=== PATIENT | male | born 1945 | race Caucasian/White ===

== ENCOUNTER 2019-10-13 07:53 | Emergency (ER) | payer OTHER, SELFPAY ==
[2019-10-13 07:52] VITALS: BP 159/105; PULSE 68; RESP 18; TEMP 36.4; O2SAT 97
--- NOTE | 2019-10-13 07:59 | ED.BACK ---
HPI - Back Pain/Injury General Chief Complaint: Back Pain/Injury Stated Complaint: back pain Time Seen by Provider: 10/13/19 08:03 Source: patient Mode of arrival: EMS Limitations: no limitations History of Present Illness HPI Narrative: A 74 y/o male presents to the ED, via EMS, with c/o back pain. Pt states that the back pain started at 0645 today when he was reaching behind him with his left arm. He notes that the back pain is located between his shoulder blades. The back pain is aggravated with movement, but he did not take any pain medication prior to his ED visit. He has a PMHx of CABG, HTN, and colon cancer. Pt denies and CP or SOB. Dr. Barclay is his PCP. MD elicited complaint: back pain Onset (ago): hour(s) (1.5) Timing: constant Location: thoracic spine Exacerbating factors: movement Context: turning/twisting Associated symptoms: denies other symptoms Treatments prior to arrival: other (none) Related Data Home Medications Medication Instructions Recorded Confirmed aspirin 81 mg PO DAILY 10/13/19 clopidogrel [Plavix] 75 mg PO DAILY 10/13/19 insulin aspart U-100 [Novolog 10 - 15 sliding scale dose SUBCUT 10/13/19 PenFill U-100 Insulin] insulin glargine [Lantus U-100 15 unit SUBCUT HS 10/13/19 Insulin] isosorbide mononitrate 30 mg PO DAILY 10/13/19 losartan 100 mg PO DAILY 10/13/19 metoprolol succinate 50 mg PO BID 10/13/19 nitroglycerin 0.4 mg SUBLINGUAL ONCE 10/13/19 Allergies Allergy/AdvReac Type Severity Reaction Status Date / Time Sulfa (Sulfonamide Allergy Mild Rash Unverified 10/13/19 07:56 Antibiotics) metformin Allergy Gastrointestinal Verified 10/13/19 07:56 Upset Review of Systems Review of Systems: All systems reviewed & are unremarkable except as noted in HPI and below Cardiovascular: Cardiovascular: Denies chest pain Respiratory: Respiratory: Denies dyspnea Musculoskeletal: Musculoskeletal: Reports back pain PMFSH Past Medical History Medical History (Updated 10/13/19 @ 08:23 by Anca Kirkpatrick MD) Cancer Colon Diabetes HTN (hypertension) Hyperlipidemia Surgical History Surgical History (Updated 10/13/19 @ 08:07 by Jesenia Winkler) History of colon resection Hx of CABG Social History Social History (Updated 10/13/19 @ 08:07 by Jesenia Winkler) Smoking status: Former smoker Tobacco type: cigarettes Second hand tobacco smoke exposure: Yes Smoking end date: 07/24/69 Exam Const: General: cooperative, no acute distress and alert Nutritional Appearance: well nourished Orientation/consciousness: patient oriented x3 Limitations: no limitations HENMT: Mouth: Yes lip normal and Yes moist mucous membranes Resp: Effort & Inspection: normal respiratory effort Auscultation: clear to auscultation bilaterally Cardio: Rate: regular rate Rhythm: regular rhythm GI: GI Palp: Yes Soft to palpation and No Tenderness to palpation present (GI) Auscultation: normal bowel sounds Back/Spine/Pelvis: Back: back tenderness (mid to lower thoracic and paraspinal) Skin: General skin exam: normal color Neuro: General: patient oriented x3 Cognition (Neuro): normal cognition Speech: normal speech Extrem: General: normal to inspection, full ROM and no clubbing, cyanosis or edema Psych: Mental Status: mental status grossly normal Affect: normal affect Attitude: cooperative Course Course Emergency Course: Patient with muscle strain in the thoracic region. Reproducible symptoms noted on exam. Counseled patient on symptomatic management. Vital Signs Vital signs: Vital Signs Temperature 97.5 F L 10/13/19 07:52 Pulse Rate 68 10/13/19 07:52 Respiratory Rate 18 10/13/19 07:52 Blood Pressure 159/105 H 10/13/19 07:52 Pulse Oximetry 97 10/13/19 07:52 Temperature 97.5 F L 10/13/19 07:52 Pulse Rate 85 10/13/19 08:50 Respiratory Rate 18 10/13/19 08:50 Blood Pressure 157/94 H 10/13/19 08:50 Pulse Oximetry 97 10/13/19 08:50
[2019-10-13 08:50] VITALS: BP 157/94; PULSE 85; RESP 18; O2SAT 97
[2019-10-13] MEDS: ACETAMINOPHEN 500 MG TABLET 1000 MG PO (09:06)
== END 2019-10-13 09:00 | disposition home or self-care (01) ==
PROVIDERS: Emergency Provider Emergency Medicine
DX: S29.012A Strain of muscle and tendon of back wall of thorax, initial encounter (principal); I25.10 Atherosclerotic heart disease of native coronary artery without angina pectoris; Z95.1 Presence of aortocoronary bypass graft; I10 Essential (primary) hypertension; Z85.038 Personal history of other malignant neoplasm of large intestine; E11.9 Type 2 diabetes mellitus without complications; E78.5 Hyperlipidemia, unspecified; Z87.891 Personal history of nicotine dependence; Z79.4 Long term (current) use of insulin; Z79.82 Long term (current) use of aspirin; Z79.02 Long term (current) use of antithrombotics/antiplatelets; X50.9XXA Other and unspecified overexertion or strenuous movements or postures, initial encounter
CPT/HCPCS: 99282; A9270

== ENCOUNTER 2020-07-25 04:10 | Inpatient (IN) | payer OTHER, SELFPAY ==
[2020-07-25] VITALS (29 sets, daily range): BP systolic 141–256; BP diastolic 79–133; PULSE 67–127; RESP 19–36; TEMP 36–38.2; O2SAT 83–100; BMI 30.4
--- NOTE | ~2020-07-25 | XR_ITS ---
EXAMINATION: XR chest 1V portable DATE: 07/26/2020 09:00 INDICATION: New onset desaturation TECHNIQUE: frontal view of the chest was obtained. COMPARISON: Chest radiograph dated 07/25/2020 FINDINGS: Endotracheal tube tip 4.7 cm above the rui. Nasogastric tube extends below the left hemidiaphragm with distal tip collimated off the study. No interval change in patchy airspace opacities throughout both lungs which appears to spare the imme diate subpleural lungs. No pleural effusion or pneumothorax. The cardiomediastinal silhouette is norm al. Median sternotomy wires, ostial markers and mediastinal surgical clips consistent with prior estela nary artery bypass grafting. IMPRESSION: 1. Unchanged diffuse bilateral lung disease which could represent pulmonary edema, pneumonia, ARDS or some combination thereof. Reviewed, dictated and finalized at location A. REMENT ADMINISTRATOR IMPRESSION: 1. Unchanged diffuse bilateral lung disease which could represent pulmonary torres ma, pneumonia, ARDS or some combination thereof.
--- NOTE | ~2020-07-25 | XR_ITS ---
EXAMINATION: XR chest ET placement INDICATION: Endotracheal tube placement TECHNIQUE: Portable AP chest at 2119 hours COMPARISON: 0454 hours FINDINGS: An endotracheal tube has been inserted which ends 3.5 cm above the rui. The nasogastric tube is followed as far as the stomach. Its tip is beyond the inferior margin of the radiograph. Diff use patchy bilateral airspace opacities persist with slight improvement. There is no pleural effusion or pneumothorax. The cardiomediastinal silhouette is stable. Median sternotomy wires and mediastinal surgical clips are seen, likely from prior coronary artery bypass grafting. IMPRESSION: 1. Endotracheal and nasogastric tubes in adequate position. 2. Diffuse lung disease with interval improvement, consistent with pneumonia and/or pulmonary edema a nd/or acute respiratory distress syndrome (ARDS). Reviewed, dictated and finalized at location A. ACCOUNTANT IMPRESSION: 1. Endotracheal and nasogastric tubes in adequate position. 2. Diffuse lung disease with interval improvement, consistent with pneumonia an d/or pulmonary edema and/or acute respiratory distress syndrome (ARDS).
--- NOTE | ~2020-07-25 | CT_ITS ---
EXAMINATION: CT brain wo con DATE: 07/25/2020 23:41 INDICATION: Seizure post code TECHNIQUE: Computed tomography (CT) of the head was performed without intravenous contrast. Sagittal and coronal reconstructions were performed. The mA was adjusted according to patient size. Iterative reconstruction technique was employed. The dose-length product was 681.00 mGy-cm. COMPARISON: None FINDINGS: Old lacunar infarct versus prominent perivascular space at the right basal ganglia. No acute intracra nial hemorrhage, acute infarction or abnormal extra axial fluid collection. Symmetric prominence of t he sulci consistent with mild age-appropriate diffuse cerebral volume loss. Ventricles are normal and symmetric. No mass/mass effect. Changes of bilateral intraocular lens replacement. The orbits and ma stoid air cells are normal. Intracranial calcified cerebral atherosclerosis is noted. Moderate mucosa l thickening throughout the paranasal sinuses with small amount of fluid layering in the right maxill daria and sphenoid sinuses. Partially visualized orogastric and nasogastric tubes at the oropharynx. IMPRESSION: 1. No acute intracranial process. 2. Old lacunar infarct versus prominent perivascular space at the right basal ganglia. Reviewed, dictated and finalized at location A. D TESTER IMPRESSION: 1. No acute intracranial process. 2. Old lacunar infarct versus prominent perivascular space at the right basal g anglia.
--- NOTE | ~2020-07-25 | XR_ITS ---
EXAMINATION: XR abdomen NG/feed tube insert INDICATION: OG placement TECHNIQUE: Portable AP KUB-NG at 2120 hours COMPARISON: None available FINDINGS: The inserted enteric tube ends with its tip in the gastric antrum. There are diffuse inters titial and airspace opacities of the visualized lung bases. The heart size is normal. IMPRESSION: 1. Enteric tube in the stomach. Reviewed, dictated and finalized at location A. INE SET UP
--- NOTE | ~2020-07-25 | XR_ITS ---
EXAMINATION: XR chest 1V portable DATE: 07/25/2020 22:53 INDICATION: Desaturation TECHNIQUE: frontal view of the chest was obtained. COMPARISON: Chest radiograph dated 07/25/2020 at 9:19 PM FINDINGS: Endotracheal tube tip 4.3 cm above the uri. Nasogastric tube extends below the left hemidiaphragm with distal tip collimated off the study. No significant interval change in extensive bilateral airspace opacities throughout both lungs which appears relatively spare the subpleural lungs. No pleural effusion or pneumothorax. The cardiomediast inal silhouette is normal. Median sternotomy wires, ostial markers and mediastinal surgical clips con sistent with prior coronary artery bypass grafting. IMPRESSION: 1. Unchanged diffuse bilateral lung disease which could represent pulmonary edema, pneumonia, ARDS or some combination thereof. Reviewed, dictated and finalized at location A. MACY ORDER ENTRY TECHNICIAN IMPRESSION: 1. Unchanged diffuse bilateral lung disease which could represent pulmonary torres ma, pneumonia, ARDS or some combination thereof.
--- NOTE | ~2020-07-25 | XR_ITS ---
EXAMINATION: XR chest 1V portable DATE: 07/25/2020 05:10 INDICATION: Shortness of breath TECHNIQUE: frontal view of the chest was obtained. COMPARISON: None FINDINGS: Bilateral patchy airspace opacities throughout both lungs which spares the immediate subpleural lungs . No pleural effusion or pneumothorax. Cardiomegaly. Median sternotomy wires, ostial markers and medi astinal surgical clips consistent with prior coronary artery bypass grafting. IMPRESSION: 1. Patchy bilateral airspace opacities which could represent pulmonary edema, pneumonia or some combi nation thereof. Reviewed, dictated and finalized at location A. KROOM CHIEF IMPRESSION: 1. Patchy bilateral airspace opacities which could represent pulmonary edema, p neumonia or some combination thereof.
[2020-07-25 04:49] LABS: Alveolar/Arterial O2 Gradient 563.8 mmHg; Base Excess ABG -4.5 mEq/l (+/-2.0); Fractional Inspired Oxygen 100 %; HCO3 ABG 18.4 mEq/l (22.0-26.0); Oxygen Content ABG 21.1 %vol (16.0-22.0); Oxygen Saturation ABG 98.5 % (95.0-100.0); Oxyhemoglobin 96.9 % THb (90.0-100.0); PCO2 ABG 28.9 mmHg (35.0-45.0); PO2 ABG 120.3 mmHg (80.0-100.0); Total Hemoglobin 15.4 g/dL (12.0-18.0); pH ABG 7.422 (7.350-7.450)
[2020-07-25 04:50] LABS: Device NON-INVASIVE VENT; Modified Allen's Test Pass; Non-Invasive Expiratory Pressure 10 CMH2O; Non-Invasive Inspiratory Pressure 18 CMH2O; Non-Invasive Vent Rate 14 /MIN; Site Drawn LEFT RADIAL
[2020-07-25 04:57] LABS: Basophils Absolute Auto 0.1 K/mm3 (0.0-0.1); Basophils Percent Auto 0.3 % (0.2-1.2); Eosinophils Absolute Auto 0.1 K/mm3 (0-0.3); Eosinophils Percent Auto 0.3 % (0-4.4); Hematocrit 49.5 % (42.0-52.0); Hemoglobin 16.1 g/dL (14.0-18.0); Immature Granulocyte Absolute 0.21 K/mm3 (0.00-0.031); Lymphocytes Absolute Auto 1.04 K/mm3 (0.9-3.2); Lymphocytes Percent Auto 5.1 % (18.3-44.2); Mean Corpuscular HGB Conc 32.5 g/dl (32-36); Mean Corpuscular Hemoglobin 28.9 pg (26-34); Mean Corpuscular Volume 88.7 fl (80-100); Mean Platelet Volume 11.7 fl (7.4-10.4); Neutrophils Absolute Auto 17.8 K/mm3 (1.3-6.7); Neutrophils Percent Auto 88.3 % (45.5-73.1); Platelet Count Result 354 k/mm3 (150-375); Red Blood Count 5.58 M/mm3 (4.6-6.20); Red Cell Distribution Width 14.4 % (11.5-14.5); White Blood Count 20.2 K/mm3 (4.5-10.0)
[2020-07-25] MEDS: DEXAMETHASONE SOD PHOS INJ 4 MG/ML VIAL 6 MG IV PUSH (05:03)
[2020-07-25 05:08] LABS: INR 1.1; Prothrombin Time 14.5 Seconds (11.1-14.7)
[2020-07-25 05:09] LABS: Partial Thromboplastin Time 41.7 SECONDS (22.3-36.8)
[2020-07-25 05:11] LABS: Alanine Aminotransferase 46 U/L (4-50); Albumin Level 4.3 g/dL (3.5-5.1); Alkaline Phosphatase 179 U/L (38-126); Anion Gap 11 mmol/L (8-16); Aspartate Amino Transferase 62 U/L (17-59); Bilirubin,Total 0.9 mg/dL (0.2-1.3); Blood Urea Nitrogen 33 mg/dL (9-20); Calcium 9.6 mg/dL (8.4-10.2); Carbon Dioxide 27 mmol/L (22-30); Chloride 96 mmol/L (98-107); Estimated CRCL calculation 40 ml/min; Estimated Glomerular Filt Rate 45; Glucose 181 mg/dL (75-110); Magnesium 2.3 mg/dL (1.6-2.3); Potassium 3.6 mmol/L (3.4-5.0); Sodium 134 mmol/L (137-145)
--- NOTE | 2020-07-25 05:29 | ED.GENADULT ---
HPI - General Adult General Chief complaint: Shortness of Breath/Dyspnea Stated complaint: respiratory distress/ covid + Time Seen by Provider: 07/25/20 04:13 History of Present Illness HPI narrative: Patient is a 75-year-old gentleman who presents the emergency department with chief complaint of shortness of breath. Patient recently was diagnosed with COVID-19 and has been having progressive shortness of breath at home. They have attempted proning him they have attempted taking nitroglycerin and multiple other therapies including incentive spirometry. The patient has had room air pulse ox is at home in the 70s and 80s and tonight became extremely short of breath and called EMS. When EMS was called they assisted his ventilations with a [id number] but the patient was alert and able to interact. Patient was immediately started on BiPAP of which has improved this patient's respiratory status immensely. Related Data Home Medications Medication Instructions Recorded Confirmed aspirin 81 mg PO DAILY 10/13/19 clopidogrel [Plavix] 75 mg PO DAILY 10/13/19 insulin aspart U-100 [Novolog 10 - 15 sliding scale dose SUBCUT 10/13/19 PenFill U-100 Insulin] insulin glargine [Lantus U-100 15 unit SUBCUT HS 10/13/19 Insulin] isosorbide mononitrate 30 mg PO DAILY 10/13/19 losartan 100 mg PO DAILY 10/13/19 metoprolol succinate 50 mg PO BID 10/13/19 nitroglycerin 0.4 mg SUBLINGUAL ONCE 10/13/19 Allergies Allergy/AdvReac Type Severity Reaction Status Date / Time Sulfa (Sulfonamide Allergy Mild Rash Verified 07/25/20 04:46 Antibiotics) metformin Allergy Gastrointestinal Verified 07/25/20 04:46 Upset Review of Systems Review of Systems: Narrative: A 10 system review of systems was completed on the patient and is negative except for what is stated in the HPI. Nursing and ancillary documentation was reviewed. [facility] Past Medical History Medical History Cancer Colon Diabetes HTN (hypertension) Hyperlipidemia Surgical History Surgical History History of colon resection Hx of CABG Social History Social History Smoking status: Former smoker Tobacco type: cigarettes Second hand tobacco smoke exposure: Yes Smoking end date: 07/24/69 Gender identity (if verbalized by the patient): Male Exam Narrative: Exam Narrative: GENERAL: Patient ill-appearing and in severe respiratory distress. HEAD: Normocephalic, atraumatic. EYES: PERRLA and EOMI. ENT: Nares clear, no rhinorrhea or epistaxis. Mucous membranes moist. NECK: Supple. CHEST: Crackles present bilaterally in severe respiratory distress. HEART: Regular rate and rhythm. No murmur heard. Normal peripheral pulses. ABDOMEN: Soft, nontender, nondistended, normal active bowel sounds. EXTREMITIES: Normal range of motion. No edema. SKIN: Warm, dry, no rash. NEURO: No focal deficits. Alert and oriented x3. PSYCH: Normal mood and affect. Course Vital Signs Vital signs: Vital Signs Temperature 38.2 C H 07/25/20 04:06 Pulse Rate 127 H 07/25/20 04:06 Respiratory Rate 31 H 07/25/20 04:06 Blood Pressure 256/133 H 07/25/20 04:06 Pulse Oximetry 83 L 07/25/20 04:06 Temperature 38.2 C H 07/25/20 04:06 Pulse Rate 90 07/25/20 06:21 Respiratory Rate 21 H 07/25/20 06:21 Blood Pressure 162/84 H 07/25/20 05:50 Pulse Oximetry 99 07/25/20 06:21 Medical Decision Making Vital Signs Vital Signs: Vital Signs Temperature 38.2 C H 07/25/20 04:06 Pulse Rate 127 H 07/25/20 04:06 Respiratory Rate 31 H 07/25/20 04:06 Blood Pressure 256/133 H 07/25/20 04:06 Pulse Oximetry 83 L 07/25/20 04:06 Temperature 38.2 C H 07/25/20 04:06 Pulse Rate 90 07/25/20 06:21 Respiratory Rate 21 H 07/25/20 06:21 Blood Pressure 162/84 H 07/25/20 0
[2020-07-25 05:36] LABS: NT Pro B Type Natriuretic Pept 4300 PG/ML (5-100); Troponin I 0.105 ng/mL (0.000-0.034)
--- NOTE | 2020-07-25 05:54 | ECG_ITS ---
Measurements Intervals [place] Rate: 92 P: 35 PA: 171 QRS: 7 QRSD: 114 T: 116 QT: 371 QTc: 459 Interpretive Statements SINUS RHYTHM VENTRICULAR PREMATURE COMPLEX LEFT ATRIAL ENLARGEMENT LEFT VENTRICULAR HYPERTROPHY AND ST-T CHANGE CANNOT RULE OUT SEPTAL INFARCT, AGE INDETERMINATE ST-T WAVE ABNORMALITY IN LAT/HIGH LAT LEADS- CONSIDER ISCHEMIA ABNORMAL ECG Electronically Signed On 07-25-2020 7:35:49 [employer]IREMENTS [employer] by Quintin Bailey D.O.
--- NOTE | 2020-07-25 05:54 | ECG_ITS ---
Measurements Intervals [place] Rate: 111 P: 49 FL: 173 QRS: 2 QRSD: 118 T: 114 QT: 331 QTc: 452 Interpretive Statements SINUS TACHYCARDIA LEFT ATRIAL ENLARGEMENT INTRAVENTRICULAR CONDUCTION DELAY ANTEROSEPTAL ST ELEVATION- CONSIDER ACUTE INFARCT WITH RECIPROCAL ST DEPRESSION I IN LAT/HIGH LEADS ABNORMAL ECG Electronically Signed On 07-25-2020 7:32:21 [employer] by Quintin Bailey D.O.
[2020-07-25] MEDS: ASPIRIN 81 MG CHEWABLE TABLET 324 MG PO (07:48)
--- NOTE | 2020-07-25 07:48 | PC.NURSE ---
No IV Tylenol given at this time. Pt. is afebrile.
[2020-07-25 07:53] LABS: Reflex Lactic Acid Yes or No Add Lactic
[2020-07-25 09:03] LABS: Glucose Point of Care 213 (65-105)
[2020-07-25 09:48] LABS: Lactic Acid 1.4 mmol/L (0.7-2.1)
[2020-07-25 10:02] LABS: Troponin I 0.721 ng/mL (0.000-0.034)
--- NOTE | 2020-07-25 10:11 | PC.NURSE ---
This patient, Mars Felix, was admitted to IMU Room 213-01. Patient/family oriented to hospital policies and general routines including ID bracelet, bed and alarms, visiting hours, pain management, procedures, bathroom and other care routines, personal items, smoking policy, room service/diet, and visiting hours. Information on how to activate the Rapid Response Team has been discussed. Patient/Family are encouraged to report perceived risks to care and to ask questions if they do not understand what they are told or what they should do.
[2020-07-25 12:52] LABS: Glucose Point of Care 237 (65-105)
[2020-07-25 12:58] LABS: Add Urine Microscopic? YES; Amorphous Sediment Urine Few; Appearance Urine Cloudy (Clear); Bacteria Urine Trace /hpf; Bilirubin Urine Negative (Negative); Blood Urine Negative (Negative); Color Urine Amber (Yellow); Glucose Urine UA 1+ mg/dL (Negative); Granular Casts Urine 30-49 /lpf; Ketones Urine Trace mg/dL (Negative); Leukocyte Esterase Ur Negative LEU/UL (Negative); Mucus Urine Rare /lpf; Nitrate Urine Negative (Negative); Protein Urine 3+ mg/dL (Negative); RBC Urine 0-2 /hpf (0-2)
[2020-07-25] MEDS: ISOSORBIDE MONONITRATE 30 MG TAB.ER.24H PO (14:19)
[2020-07-25] MEDS: CLOPIDOGREL BISULFATE 75 MG TABLET PO (14:19)
[2020-07-25] MEDS: LOSARTAN POTASSIUM 100 MG TABLET PO (14:19)
--- NOTE | 2020-07-25 15:05 | PM.IMPN ---
Progress Note: A&P Assessment and Plan (1) CAD (coronary artery disease): Code(s): I25.10 - Atherosclerotic heart disease of [place] coronary artery without angina pectoris Status: Chronic Assessment and Plan: Pt has history of CABG Cardiology in [facility], Pt seen by DR Martin, Lovenox BID and Plavix to continue for anticoagulation (2) Acute kidney injury: Code(s): N17.9 - Acute kidney failure, unspecified Status: Acute Assessment and Plan: Creat is 1.5 continue to watch (3) Hyperlipidemia: Code(s): E78.5 - Hyperlipidemia, unspecified Status: Chronic Assessment and Plan: Continue statins (4) Diabetes: Code(s): E11.9 - Type 2 diabetes mellitus without complications Status: Chronic Assessment and Plan: [place], [facility] (5) HTN (hypertension): Code(s): I10 - Essential (primary) hypertension Status: Chronic Assessment and Plan: Continue BP medication, continue to watch BP (6) Acute respiratory failure due to COVID-19: Code(s): U07.1 - COVID-19; J96.00 - Acute respiratory failure, unspecified whether with hypoxia or hypercapnia Status: Acute Assessment and Plan: Pt started on IV remdesivir to cover viral pneumonia IV rocephin and IV zithromax for cover superimposed bacterial pneumonia as his wcc is high (7) Hx of CABG: Code(s): Z95.1 - Presence of aortocoronary bypass graft Status: Acute Assessment and Plan: DR Mario sigala and is rounding, continue all cardiac medications (8) NSTEMI (non-ST elevated myocardial infarction): Code(s): I21.4 - Non-ST elevation (NSTEMI) myocardial infarction Status: Acute Assessment and Plan: DR Mario sigala and is rounding, lovenox BID NSTEMI likey secondary to prothrombotic state from cOVID and underlying CAD (9) COVID-19: Code(s): U07.1 - COVID-19 Status: Acute Assessment and Plan: POsitive finding on Jul 19 as per patient history . Subjective Date/time seen: 07/25/20 15:05 Interval history: 75-year-old gentleman who presents the emergency department with chief complaint of shortness of breath. Patient recently was diagnosed with COVID-19, in jul 19. Pt is feeling sob wearing the bipap earlier today. Cxr shows Patchy bilateral airspace opacities which could represent pulmonary edema, pneumonia. Pt started on oxygen and steroids. BNP is high and trop is high i will consult cardiology. Pt has a history of dm htn , cad, hld and cabg in the past. Pt denies chest pain but feels sob and has a cough. has been unwell since jul 18. Review of Systems Review of Systems: ROS unobtainable: Yes other (SOB, cough, tired ) Cardiovascular: Cardiovascular: Denies chest pain Gastrointestinal: Gastrointestinal: Denies no additional gastrointestinal complaints Musculoskeletal: Musculoskeletal: Reports myalgias Comments: tired malaise Exam Const: General: ill appearing, tired appearing and other (wearing BIPAP ) Orientation/consciousness: oriented to person HENMT: Head: normal to inspection Resp: Effort & Inspection: no respiratory distress Auscultation: no rhonchi and no wheezes Cardio: Rate: regular rate Rhythm: regular rhythm GI: Inspection: normal to inspection GI Palp: No abdominal tenderness, No Guarding due to palpation present (GI) and No Hepatomegaly present Auscultation: normal bowel sounds Neuro: General: oriented to person Objective Data Vital Signs Vital Signs: Vital Signs - 24 hr 07/25/20 04:06 07/25/20 04:20 07/25/20 05:50 Temperature 38.2 C H Pulse Rate 127 H 92 91 Respiratory Rate 31 H 26 H 19 Blood Pressure 256/133 H 162/84 H Pulse Oximetry 83 L 100 100 07/25/20 06:21 07/25/20 07:28 07/25/20 07:39 Temperature 36.8 C Pulse Rate 90 82 Respiratory Rate 21 H Blood Pressure 141/83 H Pulse Oximetry 99 94 07/25/20 08:15 07/25/20 08:30
--- NOTE | 2020-07-25 15:37 | PM.CNCAR ---
Assessment and Plan Assessment and plan (1) NSTEMI (non-ST elevated myocardial infarction): Code(s): I21.4 - Non-ST elevation (NSTEMI) myocardial infarction Status: Acute Assessment and Plan: Mild troponin elevation in setting of acute hypoxic respiratory failure secondary to bilateral COVID pneumonia. Twelve lead EKG at presentation in the ER with septal NC with ST elevation but without chest pain or other anginal symptoms. Repeat EKG with improvement without changes meet criteria for STEMI. Clinical presentation most consistent with NSTEMI given mild troponin elevation. Patient feels much better on BiPAP denies shortness of breath or chest pain at this time. Upon my personal notification of this consultation I discussed with Interventional partner who agreed more consistent with NSTEMI given clinical picture. Continue ASA and clopidogrel, statin, Toprol XL, losartan, nitrate therapy as tolerated. Add enoxaparin 1 milligram/kilogram subcutaneous Q 12 hour. Monitor for development of chest pain and/or progressive respiratory failure/CHF. Diuretics as needed. Monitor volume status closely. (2) Acute respiratory failure due to COVID-19: Code(s): U07.1 - COVID-19; J96.00 - Acute respiratory failure, unspecified whether with hypoxia or hypercapnia Status: Acute Assessment and Plan: As above. Management per primary service. Continue O2 supplementation, Remdesivir, Dexamethasone, ABx tx noted. Stabilizing on BiPAP. (3) Hx of CABG: Code(s): Z95.1 - Presence of aortocoronary bypass graft Status: Acute Assessment and Plan: Records requested. Will review when available. Patient notes left heart catheterization a few months ago were 1 of his bypass grafts had already closed, denies subsequent intervention. (4) COVID-19: Code(s): U07.1 - COVID-19 Status: Acute Assessment and Plan: Diagnosis July 19 with progressive respiratory failure. (5) Acute kidney injury: Code(s): N17.9 - Acute kidney failure, unspecified Status: Acute Assessment and Plan: Chronicity unknown. Monitor closely. (6) Hyperlipidemia: Code(s): E78.5 - Hyperlipidemia, unspecified Status: Acute Assessment and Plan: Statin is not currently listed as medication. Check lipid panel, atorvastatin 40 mg at bedtime. (7) Diabetes: Code(s): E11.9 - Type 2 diabetes mellitus without complications Status: Acute Assessment and Plan: Per primary service. (8) HTN (hypertension): Code(s): I10 - Essential (primary) hypertension Status: Acute Assessment and Plan: Stable, no acute issues at present. History of Present Illness History of Present Illness Consult date/time: Date of service: 07/25/20 15:37 Cardiology consultation at the request of Dr. Barrera of the [facility] service for my opinion regarding elevated troponin. Requesting physician: Stephany Barrera MD Consult reason: Other (Elevated troponin) Reason For Visit: COVID-19 pneumonia, repsiratory failure Narrative: Patient is a pleasant 75-year-old gentleman with past medical history significant for prior 3 vessel bypass surgery, hypertension, diabetes mellitus, dyslipidemia followed by cardiology at [facility] diagnosed with COVID-19 July 19 who presents emergency department progressive weakness, shortness of breath. It is documented oxygen saturations at home on room air with the 70s and 80s and became extremely short of breath prompting EMS. EMS gave ventilations with bag valve mask and upon arrival to the ER BiPAP was initiated which significantly improved his respiratory status. He denies chest pain at any time. Prior to diagnosis of COVID-19 patient states he was doing very well and denies chest pain, shortness of breath or fatigue. He states he is compliant with medications. He follows with Dr. Walter Jimenez at [place] and reports having a
[2020-07-25 16:08] LABS: Alanine Aminotransferase 39 U/L (4-50); Cholesterol 154 mg/dL (0-200); HDL Direct 28 mg/dL; Triglycerides 116 mg/dL (<150)
[2020-07-25 16:13] LABS: Glucose Point of Care 272 (65-105)
[2020-07-25 16:19] LABS: LDL Cholesterol Direct 79 mg/dL
[2020-07-25] MEDS: METOPROLOL SUCCINATE EXT REL 50 MG TABCR PO (17:25)
[2020-07-25] MEDS: INSULIN ASPART (*BKC) 100 UNITS/ML SUB-Q (17:26)
[2020-07-25] MEDS: REMDESIVIR 200 MG/NS 250 ML 200 MG/250 ML BAG 250 MG IVPB (17:26)
[2020-07-25] MEDS: ENOXAPARIN 100 MG/ML SYRINGE SUB-Q (17:26)
[2020-07-25] MEDS: INSULIN GLARGINE (*BKC) 100 UNITS/ML 15 UNITS SUB-Q (20:13)
[2020-07-25 20:35] LABS: Glucose Point of Care 372 (65-105)
--- NOTE | 2020-07-25 21:01 | WPDPROCEDUR ---
Procedures Intubation Intubation Date: 07/25/20 Intubation Time: 20:55 Consent: EMERGENT - CODE BLUE. A pre-procedural Time-Out was completed immediately before starting the procedure and confirmed: Patient Identification, Site, Procedure, Patient Position and the Availability of Requisite Equipment: Yes Sedative: none Laryngoscope: Lili ET tube size: 7.5 Tube secured depth (cm): 25 Tube secured location: teeth Tube placement confirmation: visualized tube passing through cords, equal breath sounds bilaterally, no breath sounds over epigastrium and confirmation by capnometry Patient tolerated procedure: well Intubation complications: none Additional comments: Date of service was 07/25/2011 at 20:55 hrs.
[2020-07-25] MEDS: MIDAZOLAM HCL (*CRX) 2 MG/2 ML VIAL 4 MG IV PUSH (21:25)
--- NOTE | 2020-07-25 21:49 | WPDPROCEDUR ---
Procedures Central Line Placement Right Femoral: Central Line Date: 07/25/20 Central Line Time: 21:28 Performed Emergently - Given emergent patient condition, temporal constraints may have precluded informed consent.: Yes Time Out Performed: Yes Patient Position: supine Patient placed on monitor/pulse ox: Yes Provider Prep: Max. sterile barrier precautions Local anesthesia used: lidocaine 1% Sterile US Technique with sterile gel/sterile probe covers: Yes Central line lumen inserted: triple [place]: 7 Length (cm): 16 Depth of Insertion (cm): 16 Post Procedure: sutured in place, good blood return, all ports aspirated, flushed, capped and transparent dressing Complications: none (no complicATIONS)
[2020-07-25] MEDS: LEVALBUTEROL NEB 1.25 MG/3 ML 0.63 MG INHALATION (22:07)
[2020-07-25] MEDS: FENTANYL 2,500MCG/NS250ML(*CRX 2,500 MCG/250 ML BAG IV CONT (22:08)
[2020-07-25 22:29] LABS: Glucose Point of Care 324 (65-105)
[2020-07-25 22:31] LABS: Hematocrit 44.7 % (42.0-52.0); Hemoglobin 14.2 g/dL (14.0-18.0); Mean Corpuscular HGB Conc 31.8 g/dl (32-36); Mean Corpuscular Hemoglobin 29.1 pg (26-34); Mean Corpuscular Volume 91.6 fl (80-100); Mean Platelet Volume 11.4 fl (7.4-10.4); Platelet Count Result 353 k/mm3 (150-375); Red Blood Count 4.88 M/mm3 (4.6-6.20); Red Cell Distribution Width 14.7 % (11.5-14.5); White Blood Count 31.9 K/mm3 (4.5-10.0)
[2020-07-25] MEDS: LORazepam INJ (*CRX) 2 MG/ML VIAL IV PUSH (22:31)
[2020-07-25 22:34] LABS: Alveolar/Arterial O2 Gradient 594.8 mmHg; Base Excess ABG -12.1 mEq/l (+/-2.0); Fractional Inspired Oxygen 100 %; HCO3 ABG 16.6 mEq/l (22.0-26.0); Oxygen Content ABG 18.7 %vol (16.0-22.0); Oxygen Saturation ABG 88.9 % (95.0-100.0); Oxyhemoglobin 88.2 % THb (90.0-100.0); PCO2 ABG 48.2 mmHg (35.0-45.0); Total Hemoglobin 15.1 g/dL (12.0-18.0)
[2020-07-25 22:37] LABS: pH ABG 7.155 (7.350-7.450)
--- NOTE | 2020-07-25 22:46 | PC.NURSE ---
Addendum entered by Daysi Swift RN 07/26/20 02:23: Addendum to add that pt's bipap mask was off his face upon reentering room to respond to rhythm change. Original Note: Entered room around 2009, Pt had desaturated to low to mid 80's. Pt was tachypneic with a rate in the 40's. Bipap settings 18/10 with an fio2 of 50% and a back up rate of 4. Increased fio2 to 70% and sat's improved to low 90's. Instructed pt to focus on slowing down his breathing and taking deep breaths. Pt was shivering and cold and asked to be covered up. Breathing improved somewhat. Contacted Dr Herman after leaving the room to ask for breathing treatments as none were ordered. ABG and breathing treatments ordered. I started to gown up and go in another room, but alarm for this pt read vfib/vtach. Entered the room to find patient unresponsive and code blue was called.
[2020-07-25 22:51] LABS: Band Neutrophils Percent 8 % (0-6); Lymphocytes Absolute Manual 0.95 K/mm3 (1.1-4.5); Monocytes Absolute Manual 0.63 K/mm3 (0.1-0.90); Monocytes Percent Manual 2 % (3-9); Neutrophils Percent Manual 87 % (46-73); Total Cells Counted 100
[2020-07-25 22:52] LABS: Anisocytosis 1+ (NORMAL); Platelet Estimate Adequate (Adequate)
[2020-07-25] MEDS: ROCURONIUM BROMIDE 50 MG/5 ML VIAL 60 MG IV PUSH (23:08)
[2020-07-25 23:17] LABS: Albumin Level 3.5 g/dL (3.5-5.1); Alkaline Phosphatase 168 U/L (38-126); Anion Gap 16 mmol/L (8-16); Aspartate Amino Transferase 359 U/L (17-59); Bilirubin,Total 0.7 mg/dL (0.2-1.3); Blood Urea Nitrogen 50 mg/dL (9-20); Calcium 8.1 mg/dL (8.4-10.2); Carbon Dioxide 22 mmol/L (22-30); Chloride 96 mmol/L (98-107); Estimated CRCL calculation 35 ml/min; Estimated Glomerular Filt Rate 35; Glucose 437 mg/dL (75-110); Potassium 4.8 mmol/L (3.4-5.0); Sodium 134 mmol/L (137-145)
[2020-07-25 23:18] LABS: Lactic Acid Reflex 6.8 mmol/L (0.7-2.1)
[2020-07-25 23:29] LABS: Alanine Aminotransferase 152 U/L (4-50); Troponin I 0.972 ng/mL (0.000-0.034)
--- NOTE | 2020-07-25 23:56 | PDCODEBLUE ---
Code Blue Note Code Blue Note Time Arrived at Code Blue: 2036 Initial Rhythm on Arrival: Initially the patient had no pulses and CPR was performed. Once were able to get the patient hooked up to the monitor it looks like V-tach Airway Management: Initiated bagging pt on arrival Chest Compressions: In process on arrival to bedside Result of Code Blue: Pt transferred to ICU Cardiac Rhythm Post Code: Sinus rhythm Code Blue Summary: Mala bauman was called and I initially came to the room and chest compressions were being performed. We immediately started bagging the patient. No pulse could be felt. Once the patient was connected to the heart monitor the patient was found to be in V-tach and and then PE a at 8:39 p.m.. At 8:40 p.m. the patient was given a dose of epinephrine and at 8:44 p.m. the patient was found to be in VFib and the patient was then shocked/defibrillated patient was found to be in a junctional rhythm. Patient was then intubated at 8:51 p.m.. Patient did receive a total of 3 doses of epinephrine 1 at 8:40 p.m. 2nd at 8:43 p.m. and last 1 at 8:46 p.m.. The patient was given 2 doses of sodium bicarb once at 8:42 p.m. and 2nd 1 at 8:47 p.m.. His glucose was found to be 324. Patient was taken to the intensive care unit around 2055. A central line was placed at that time. The patient had been placed on the ventilator. Vent settings per neon tube bender. ETT was noted to be 3.5 cm above the rui. Family had been updated on the patient's status. Patient's condition is guarded.
[2020-07-26] VITALS (24 sets, daily range): BP systolic 77–169; BP diastolic 49–76; PULSE 59–88; RESP 15–30; TEMP 36.5–37.8; O2SAT 89–100
[2020-07-26] MEDS: SODIUM BICARBONATE 8.4% 150 MEQ in DEXTROSE 5% 1,000 ML 950 ML 50 MEQ IV CONT
--- NOTE | 2020-07-26 00:17 | PC.NURSE ---
This patient, Mars Felix, was received from IMU on 07/25/20 at 2111. Patient/family oriented to unit policies and routines
[2020-07-26 00:19] LABS: Alveolar/Arterial O2 Gradient 608.1 mmHg; Base Excess ABG -8.2 mEq/l (+/-2.0); Fractional Inspired Oxygen 100 %; HCO3 ABG 18.5 mEq/l (22.0-26.0); Oxygen Saturation ABG 88.9 % (95.0-100.0); PCO2 ABG 41.9 mmHg (35.0-45.0); PO2 FiO2 Ratio Arterial Blood 0.63 %
[2020-07-26 00:21] LABS: Device VENTILATOR; Modified Allen's Test Unable to perform; Site Drawn LEFT BRACHIAL; pH ABG 7.262 (7.350-7.450)
[2020-07-26 00:22] LABS: Arterial Blood Gas PEEP 12 cmH2O; Arterial Blood Gas Tidal Volume 450 ml; Arterial Blood Gas Vent Mode CMV; Arterial Blood Gas Ventilator rate 25 /MIN
[2020-07-26] MEDS: NOREPINEPHRINE 8 MG/D5W 250 ML 8 MG/250 ML BAG 3.75 MG IV CONT (01:15)
[2020-07-26 01:29] LABS: Reflex Lactic Acid Yes or No Add Lactic
[2020-07-26 02:09] LABS: Lactic Acid 5.3 mmol/L (0.7-2.1)
[2020-07-26 02:22] LABS: Alveolar/Arterial O2 Gradient 595.5 mmHg; Base Excess ABG -7.1 mEq/l (+/-2.0); Fractional Inspired Oxygen 100 %; HCO3 ABG 19.6 mEq/l (22.0-26.0); Oxygen Content ABG 17.4 %vol (16.0-22.0); Oxygen Saturation ABG 92.9 % (95.0-100.0); Oxyhemoglobin 92.3 % THb (90.0-100.0); PCO2 ABG 43.7 mmHg (35.0-45.0); PO2 ABG 73.8 mmHg (80.0-100.0); PO2 FiO2 Ratio Arterial Blood 0.74 %; Total Hemoglobin 13.4 g/dL (12.0-18.0)
[2020-07-26 02:23] LABS: Site Drawn LEFT BRACHIAL; pH ABG 7.269 (7.350-7.450)
[2020-07-26 02:24] LABS: Arterial Blood Gas PEEP 12 cmH2O; Arterial Blood Gas Vent Mode CMV; Arterial Blood Gas Ventilator rate 25 /MIN; Device VENTILATOR
[2020-07-26 02:25] LABS: Arterial Blood Gas Tidal Volume 450 ml
[2020-07-26] MEDS: LEVALBUTEROL NEB 1.25 MG/3 ML 0.63 MG INHALATION ×2 (02:31→08:16)
[2020-07-26 05:15] LABS: Alanine Aminotransferase 150 U/L (4-50)
[2020-07-26 05:23] LABS: Lactic Acid Reflex 4.7 mmol/L (0.7-2.1)
[2020-07-26 05:26] LABS: Alveolar/Arterial O2 Gradient 588.9 mmHg; Base Excess ABG -5.5 mEq/l (+/-2.0); Carboxyhemoglobin 0.3 % THb (0-2.0); Fractional Inspired Oxygen 100 %; Methemoglobin ABG 0.3 %THb (0-1.5); Oxygen Content ABG 17.9 %vol (16.0-22.0); Oxygen Saturation ABG 95.8 % (95.0-100.0); Oxyhemoglobin 94.9 % THb (90.0-100.0); PO2 ABG 85.1 mmHg (80.0-100.0); PO2 FiO2 Ratio Arterial Blood 0.85 %; Reduced Hemoglobin 4.5 %THb (0-5.0); Total Hemoglobin 13.4 g/dL (12.0-18.0); pH ABG 7.327 (7.350-7.450)
[2020-07-26 05:27] LABS: Device VENTILATOR; Modified Allen's Test Pass; Site Drawn RIGHT RADIAL
[2020-07-26 05:28] LABS: Arterial Blood Gas Tidal Volume 450 ml; Arterial Blood Gas Vent Mode CMV; Arterial Blood Gas Ventilator rate 25 /MIN
[2020-07-26 05:29] LABS: Arterial Blood Gas PEEP 12 cmH2O
[2020-07-26] MEDS: CENTRAL LINE FLUSH 10 ML IV PUSH (05:53)
[2020-07-26] MEDS: ENOXAPARIN 100 MG/ML SYRINGE SUB-Q (05:54)
--- NOTE | 2020-07-26 05:56 | ECG_ITS ---
Measurements Intervals [facility] Rate: 61 P: 33 TX: 180 QRS: -14 QRSD: 116 T: 138 QT: 440 QTc: 447 Interpretive Statements SINUS RHYTHM VENTRICULAR PREMATURE COMPLEX POSSIBLE LEFT ATRIAL ENLARGEMENT INTRAVENTRICULAR CONDUCTION DELAY DELAYED PRECORDIAL R/S TRANSITION ST-T WAVE ABNORMALITY IN ANT/HIGH LAT LEADS- CONSIDER ISCHEMIA ABNORMAL ECG Electronically Signed On 07-28-2020 10:51:41 BLOCKING MACHINE OPERATOR by Quintin Bailey D.O.
[2020-07-26 07:41] LABS: Glucose Point of Care > 500 (65-105)
[2020-07-26 07:57] LABS: Basophils Percent Auto 0.2 % (0.2-1.2); Hematocrit 36.5 % (42.0-52.0); Hemoglobin 11.8 g/dL (14.0-18.0); Immature Granulocyte Absolute 0.24 K/mm3 (0.00-0.031); Immature Granulocyte Percent A 1.3 % (0-0.5); Lymphocytes Absolute Auto 0.57 K/mm3 (0.9-3.2); Mean Corpuscular HGB Conc 32.3 g/dl (32-36); Mean Corpuscular Hemoglobin 28.7 pg (26-34); Mean Corpuscular Volume 88.8 fl (80-100); Mean Platelet Volume 11.7 fl (7.4-10.4); Monocytes Absolute Auto 0.6 K/mm3 (0.1-0.6); Monocytes Percent Auto 3.2 % (2.6-8.5); Neutrophils Absolute Auto 17.3 K/mm3 (1.3-6.7); Neutrophils Percent Auto 92.3 % (45.5-73.1); Platelet Count Result 290 k/mm3 (150-375); Red Blood Count 4.11 M/mm3 (4.6-6.20); Red Cell Distribution Width 14.8 % (11.5-14.5); White Blood Count 18.7 K/mm3 (4.5-10.0)
[2020-07-26 08:21] LABS: Anion Gap 12 mmol/L (8-16); Blood Urea Nitrogen 64 mg/dL (9-20); Carbon Dioxide 25 mmol/L (22-30); Chloride 92 mmol/L (98-107); Estimated CRCL calculation 23 ml/min; Estimated Glomerular Filt Rate 24; Glucose 514 mg/dL (75-110); Potassium 4.2 mmol/L (3.4-5.0); Sodium 129 mmol/L (137-145)
[2020-07-26 08:25] LABS: D Dimer 3.77 ug/mL (<0.48)
[2020-07-26 08:29] LABS: Alanine Aminotransferase 150 U/L (4-50); Albumin Level 2.8 g/dL (3.5-5.1); Alkaline Phosphatase 130 U/L (38-126); Aspartate Amino Transferase 358 U/L (17-59); Bilirubin,Total 0.3 mg/dL (0.2-1.3)
[2020-07-26] MEDS: ROCURONIUM BROMIDE 50 MG/5 ML VIAL (08:45)
[2020-07-26 08:59] LABS: CRP 24.6 mg/dL (<1.0); Magnesium 2.1 mg/dL (1.6-2.3); Phosphorus 5.9 mg/dL (2.5-4.5)
[2020-07-26] MEDS: EPOPROSTENOL SODIUM 0.5 MG VIAL 1 MG INHALATION (09:00)
[2020-07-26] MEDS: ATORVASTATIN 40 MG TABLET PO (09:21)
[2020-07-26] MEDS: DEXAMETHASONE SOD PHOS INJ 4 MG/ML VIAL 6 MG IV PUSH (09:22)
[2020-07-26] MEDS: ASPIRIN 81 MG CHEWABLE TABLET PO (09:22)
--- NOTE | 2020-07-26 09:22 | WPDCNINT ---
Assessment and Plan Assessment and plan (1) Acute respiratory failure due to COVID-19: Code(s): U07.1 - COVID-19; J96.00 - Acute respiratory failure, unspecified whether with hypoxia or hypercapnia Status: Acute Assessment and Plan: Acute respiratory failure likely related to COVID-19 pneumonia also patient with cardiac arrest requiring intubation on 07/25/2020 -chest x-ray shows diffuse bilateral lung disease -patient on CMV mode of ventilation, peep of 12, 100% FiO2. -sedated with fentanyl and Versed, also started him on Nimbex as he was dyssynchronous with the ventilator and desaturated this morning to the 50s to 60s and had to be bagged. -repeat chest x-ray showed no change in bilateral diffuse lung disease, no pneumothorax was seen. (2) Cardiac arrest: Code(s): I46.9 - Cardiac arrest, cause unspecified Status: Acute Assessment and Plan: Patient had a V-tach/VFib arrest on 07/25/2020 ROSC within 10 minutes. Patient does have some myoclonic jerks post cardiac arrest, was started on valproic acid -patient also admitted here with NSTEMI on Lovenox, -discussed with his PCP Dr. Camille Barclay, stated that patient has a history of stroke, vascular disease, coronary artery disease with almost every artery in the heart has been stented, history of colon cancer. Poor prognosis prior to COVID-19. He also stated that the patient did not believe much in medications and has different beliefs regarding medical care. (3) NSTEMI (non-ST elevated myocardial infarction): Code(s): I21.4 - Non-ST elevation (NSTEMI) myocardial infarction Status: Acute Assessment and Plan: Patient with elevated troponins, no EKG changes, was diagnosed as NSTEMI and started on therapeutic Lovenox -blood pressures are low, patient on Levophed. Will hold metoprolol, Imdur, losartan -patient on therapeutic Lovenox (4) Acute kidney injury: Code(s): N17.9 - Acute kidney failure, unspecified Status: Acute Assessment and Plan: -patient with acute kidney injury, likely related to, cardiac arrest, acute respiratory failure hypoxia -urine output has been low -will continue to monitor in function, electrolytes and urine output (5) Shock: Code(s): R57.9 - Shock, unspecified Status: Acute Assessment and Plan: Low blood pressures, requiring Levophed, could be related to cardiac arrest, NSTEMI, hypoxia and pneumonia -patient on Levophed at 6 mcg/minute, maintain mean arterial pressures greater than 65 mmHg -blood cultures obtained and pending (6) COVID-19: Code(s): U07.1 - COVID-19 Status: Acute Assessment and Plan: Patient tested positive for COVID-19 on 07/19/2020, has been home with increasing shortness of breath, has been proning himself, incentive spirometry despite which patient's respiratory status had worsened and he presented the ED. -patient started on dexamethasone IV -not a candidate for Remdesivir due to his acute kidney injury -continue droplet, airborne and contact isolation/precautions (7) Hyperglycemia: Code(s): R73.9 - Hyperglycemia, unspecified Status: Acute Assessment and Plan: Patient hyperglycemic likely related to dexamethasone Additional Plan Discussed with patient's Matthew, and his primary care physician Dr. Camille Barclay, updated both of them regarding patient's condition plan care. His PCP was very helpful providing additional information. PCP also spoke to his and updated as she want to hear from him the patient's condition. The later called me and requested to withdraw support as this was not patient's wishes Code status: DNR Critical care time spent: [address] Sheets and I did let him know regarding patient's 's decision and request. Due to a high probability of clinically significant, life threatening deterioration, the patient required my highest level of preparedness to interve
[2020-07-26 09:29] LABS: Glucose Point of Care 461 (65-105)
[2020-07-26 09:29] LABS: Lactate Dehydrogenase 2116 U/L (313-618)
[2020-07-26 10:15] LABS: Ferritin > 2000.00 ng/mL (11.1-264)
--- NOTE | 2020-07-26 15:50 | P.DN_ITS ---
Discharge Sum: Prov Provider Primary care physician: PHYSICIAN NOT ON STAFF Admitting provider: Xu Herman MD Consults: 07/25/20 Consult to Physician Routine Comment: is notified Consulting Provider: Stephan Martin call center operator/MD group to consult: Cardiology Consult Dr. Martin notified Reason for consultation: Elevated troponins Has provider been notified: Yes 07/25/20 21:02 Consult to Physician Routine Comment: Consulting Provider: Iván Acosta call center operator/MD group to consult: Dr. Acosta Reason for consultation: ICU transfer Has provider been notified: Yes 07/26/20 00:46 Consult to Physician Routine Comment: notified by Dr. Herman Consulting Provider: Rob Winn call center operator/MD group to consult: Neurology - Dr. Winn Reason for consultation: Seizures Has provider been notified: Yes Discharge Sum: Diag Contributing Factors (1) COVID-19: (2) Acute respiratory failure due to COVID-19: (3) NSTEMI (non-ST elevated myocardial infarction): (4) Diabetes: (5) Cardiac arrest: (6) Shock: (7) Acute kidney injury: Discharge Sum: Summary Date and Time Date of admission: 07/25/20 06:18 Summary Details: 75-year-old gentleman was admitted to [facility] intermediate care unit on July 25. He was diagnosed with COVID-19 on 07/19. He was at a family gathering or multiple people were ill on 07/17. He had a cough and progressive shortness of breath. Chest x-ray revealed diffuse infiltrates. Creatinine increased from 1.5 to 2.9. He was treated with standard dexamethasone. However he progressively were not sent and experienced a cardiac heard rest with elevated troponins ventricular tachycardia followed by PE a followed by ventricular fibrillation and then junctional rhythm. He received e pinephrine 3 times and was cardioverted. He was intubated and in the intensive care unit on ventilator with pressor support. Because of his poor prognosis and advanced age and multiple comorbidities his family opted to remove life support. He remained comfortable but shortly thereafter. Additional Data Attending physician: Xu Herman MD
[2020-07-28 07:04] LABS: Arterial Blood Gas PEEP 8 cmH2O; Arterial Blood Gas Tidal Volume 400 ml; Arterial Blood Gas Vent Mode CMV; Arterial Blood Gas Ventilator rate 18 /MIN; Device VENTILATOR; Modified Allen's Test Pass; Site Drawn RIGHT RADIAL
== END 2020-07-26 12:15 | disposition expired | DRG 208 ==
LOC: ANHED 04:22 → ANHIMU 10:15 → ANHICU 07-26 02:19 → ANHIMU 07-30 09:29
PROVIDERS: Internal Medicine; Internal Medicine Cardiovascular Disease; Nurse Practitioner; Admitting Provider Family Medicine; Emergency Provider Emergency Medicine; Visit Provider Internal Medicine
DX: U07.1 COVID-19 (principal); J12.82 Pneumonia due to coronavirus disease 2019; I21.4 Non-ST elevation (NSTEMI) myocardial infarction; J15.9 Unspecified bacterial pneumonia; J96.01 Acute respiratory failure with hypoxia; N17.9 Acute kidney failure, unspecified; I47.1 Supraventricular tachycardia; I46.9 Cardiac arrest, cause unspecified; I49.01 Ventricular fibrillation; R57.8 Other shock; I25.10 Atherosclerotic heart disease of native coronary artery without angina pectoris; I10 Essential (primary) hypertension; E78.5 Hyperlipidemia, unspecified; E11.65 Type 2 diabetes mellitus with hyperglycemia; Z66 Do not resuscitate; Z85.038 Personal history of other malignant neoplasm of large intestine; Z95.1 Presence of aortocoronary bypass graft; Z87.891 Personal history of nicotine dependence
CPT/HCPCS: 36415; 36600; 70450; 71045; 80053; 80061; 81001; 82375; 82565; 82728; 82805; 83050; 83605; 83615; 83735; 83880; 84100; 84460; 84484; 85025; 85380; 85610; 85730; 86140; 87040; 92950; 93005; 94002; 94640; 96365; 96368; 99285; A9270; C1751; J0171; J0456; J0696; J1100; J1650; J1815; J2060; J2250; J3010; J3370; J7030; J7070